=== PATIENT | female | born 1940 | race Caucasian/White ===

== ENCOUNTER 2020-09-29 10:57 | Outpatient (REF) | payer MEDICARE, SELFPAY ==
[2020-09-29 16:11] LABS: ALT 24 U/L (14-59); AST 21 U/L (15-37); Albumin 4.1 g/dL (3.4-5.0); Alkaline Phosphatase 94 U/L (46-116); Anion Gap 11.1 mmol/L (3-11); BUN 20 mg/dL (7-18); Bilirubin, Total 0.8 mg/dL (0.2-1.0); CO2 25.9 mmol/L (21.0-32.0); CREATININE 0.9 mg/dL (0.55-1.02); Calcium 9.3 mg/dL (8.5-10.1); Chloride 106 mmol/L (98-107); Glucose 88 mg/dL (74-106); Potassium 4.6 mmol/L (3.5-5.1); Sodium 143 mmol/L (136-145); TSH (W/Ref FT4) 4.14 uIU/mL (0.36-3.74); Total Protein 7.1 g/dL (6.4-8.2)
[2020-09-29 16:31] LABS: LDL CHOLESTEROL 183 mg/dL (<100)
[2020-09-29 16:55] LABS: FREE T4 1.03 ng/dL (0.76-1.46)
== END 2020-09-29 10:58 | disposition home or self-care (01) ==
LOC: NCHCN 10:57
PROVIDERS: PCP Physician Assistant Medical; Visit Provider Physician Assistant
DX: I10 Essential (primary) hypertension (principal); E78.5 Hyperlipidemia, unspecified; R00.2 Palpitations
CPT/HCPCS: 80053; 83721; 84439; 84443

== ENCOUNTER 2022-10-09 18:12 | Outpatient (REF) | payer MEDICARE, SELFPAY ==
[2022-10-09 20:01] LABS: HCT 39.5 % (36.0-46.0); HGB 12.6 g/dL (11.2-15.7); MCH 25.9 pg (27.0-33.0); MCHC 31.9 % (32.0-36.0); MCV 81 fL (80-95); MPV 11.7 fL (8.0-11.0); Platelet Count 309 10^3/uL (130-400); RBC 4.87 10^6/uL (3.93-5.22); RDW 14.9 % (11.7-14.6); RDW-SD 44.3 fL; WBC 7.56 10^3/uL (4.4-10.8)
[2022-10-09 20:06] LABS: Anion Gap 9.3 mmol/L (3-11); BUN 20 mg/dL (7-18); CO2 22.7 mmol/L (21.0-32.0); CREATININE 0.9 mg/dL (0.55-1.02); Calcium 9.3 mg/dL (8.5-10.1); Chloride 107 mmol/L (98-107); Estimated GFR 63.43 (mL/min/1.73m2); Glucose 100 mg/dL (74-106); Potassium 3.9 mmol/L (3.5-5.1); Sodium 139 mmol/L (136-145)
== END 2022-10-09 18:13 | disposition home or self-care (01) ==
LOC: NCHCN 18:12
PROVIDERS: PCP Physician Assistant Medical; Visit Provider Internal Medicine
DX: I10 Essential (primary) hypertension (principal)
CPT/HCPCS: 80048; 85027

== ENCOUNTER 2023-08-29 14:12 | Outpatient (REF) | payer MEDICARE, SELFPAY ==
[2023-08-29 20:41] LABS: HCT 39.8 % (36.0-46.0); HGB 12.7 g/dL (11.2-15.7); MCH 25.9 pg (27.0-33.0); MCHC 31.9 % (32.0-36.0); MCV 81 fL (80-95); MPV 12.1 fL (8.0-11.0); Platelet Count 248 10^3/uL (130-400); RBC 4.91 10^6/uL (3.93-5.22); RDW 14.3 % (11.7-14.6); RDW-SD 42.1 fL; WBC 5.86 10^3/uL (4.4-10.8)
[2023-08-29 21:05] LABS: BUN 28 mg/dL (7-18); Calcium 9.3 mg/dL (8.5-10.1); Chloride 108 mmol/L (98-107); Estimated GFR 55.55 (mL/min/1.73m2); Glucose 98 mg/dL (74-106); Magnesium 1.9 mg/dL (1.8-2.4); Potassium 4.5 mmol/L (3.5-5.1); Sodium 144 mmol/L (136-145); TSH 2.66 uIU/Ml (0.36-3.74)
[2023-08-29 21:17] LABS: Vitamin D 25 Total 43.6 ng/mL (30-100)
== END 2023-08-29 14:13 | disposition home or self-care (01) ==
LOC: NCHCN 14:12
PROVIDERS: PCP Physician Assistant Medical; Visit Provider Internal Medicine
DX: E03.9 Hypothyroidism, unspecified; I10 Essential (primary) hypertension; M81.0 Age-related osteoporosis without current pathological fracture
CPT/HCPCS: 80048; 82306; 85027; 83735; 84443

== ENCOUNTER 2024-03-20 10:57 | Outpatient (REF) | payer MEDICARE, SELFPAY ==
--- NOTE | 2024-03-20 13:15 | PAPFT_PTH ---
PATIENT: Lexie Hobson LOC: [facility] U#:[id number] AGE/SX: 83/F ROOM: RE03/20/[address]: James Torres : 1940 BED: DIS: 03/20/2024 SPEC #: [id number] RECD: 03/21/24 13:14 STATUS: HAZEL REQ #: [id number] JOSEPH: 03/20/24 13:[address]: James Torres DEPT: ON LICENSE OF [facility] Cytology RECD BY: Laura Acosta ENTERED: 03/21/24 13:15 SP TYPE: PAPFT OTHR DR: Anita Castillo Tissues: 1 - CX/ENDOCX FOR PAP SMEARS Procedures: PAP THIN PREP/[facility] Screening Comments: [id number]
== END 2024-03-20 10:58 | disposition home or self-care (01) ==
LOC: NCHCN 10:57
PROVIDERS: PCP Physician Assistant Medical; Visit Provider Internal Medicine
DX: Z11.51 Encounter for screening for human papillomavirus (HPV) (principal); Z01.419 Encounter for gynecological examination (general) (routine) without abnormal findings
CPT/HCPCS: 88142

== ENCOUNTER 2024-09-18 17:29 | Outpatient (REF) | payer MEDICARE, SELFPAY ==
[2024-09-18 19:32] LABS: Anion Gap 6.7 mmol/L (3-11); BUN 41 mg/dL (7-18); CO2 29.3 mmol/L (21.0-32.0); CREATININE 1.2 mg/dL (0.55-1.02); Calcium 9.5 mg/dL (8.5-10.1); Chloride 104 mmol/L (98-107); Estimated GFR 44.36 (mL/min/1.73m2); Glucose 99 mg/dL (74-106); Potassium 4.1 mmol/L (3.5-5.1); Sodium 140 mmol/L (136-145)
== END 2024-09-18 17:30 | disposition home or self-care (01) ==
LOC: NCHCN 17:29
PROVIDERS: PCP Physician Assistant Medical; Visit Provider Internal Medicine
DX: I50.9 Heart failure, unspecified (principal)
CPT/HCPCS: 80048

== ENCOUNTER 2025-03-16 19:34 | Outpatient (REF) | payer MEDICARE, SELFPAY ==
[2025-03-16 20:19] LABS: HCT 39.1 % (36.0-46.0); HGB 12.4 g/dL (11.2-15.7); MCH 26.3 pg (27.0-33.0); MCHC 31.7 % (32.0-36.0); MCV 83 fL (80-95); MPV 11.7 fL (8.0-11.0); Platelet Count 266 10^3/uL (130-400); RBC 4.72 10^6/uL (3.93-5.22); RDW 13.6 % (11.7-14.6); RDW-SD 41.0 fL; WBC 5.98 10^3/uL (4.4-10.8)
[2025-03-16 20:31] LABS: Anion Gap 7.9 mmol/L (3-11); BUN 31 mg/dL (7-18); CO2 31.1 mmol/L (21.0-32.0); Calcium 9.4 mg/dL (8.5-10.1); Calculated LDL 119 mg/dL (<100); Chloride 101 mmol/L (98-107); Cholesterol 209 mg/dL (<200); Estimated GFR 48.94 (mL/min/1.73m2); Glucose 94 mg/dL (74-106); HDL Cholesterol 52 mg/dL (>or=50); Potassium 4.4 mmol/L (3.5-5.1); Sodium 140 mmol/L (136-145); Triglyceride 192 mg/dL (<150)
[2025-03-16 20:49] LABS: NT-proBNP 1782 pg/mL (<300)
== END 2025-03-16 19:35 | disposition home or self-care (01) ==
LOC: NCHCN 19:34
PROVIDERS: PCP Physician Assistant Medical; Visit Provider Internal Medicine
DX: I10 Essential (primary) hypertension (principal)
CPT/HCPCS: 80048; 80061; 85027; 83880